=== PATIENT | female | born 1990 | race Caucasian/White ===

== ENCOUNTER 2022-04-17 09:51 | Emergency (ER) | payer SELFPAY ==
[~2022-04-17] VITALS: Ht 172.7 cm; Wt 61.2 kg
[2022-04-17 10:11] VITALS: BP_SYST 116
--- NOTE | 2022-04-17 10:30 | NUR ---
Patient to ER bed TRIAGE to gown for evaluation. Side rails up.
--- NOTE | 2022-04-17 10:45 | NUR ---
ER at bedside examining patient.
[2022-04-17] MEDS ORDERED: CIPR500T5 PO (11:22)
[2022-04-17] MEDS ORDERED: LOM2.5 PO (11:22)
[2022-04-17 11:30] VITALS: BP_SYST 116
--- NOTE | 2022-04-17 11:30 | NUR ---
Patient given written and verbal discharge instructions and verbalizes understanding. ER MD discussed with patient the results and treatment provided. Patient in stable condition. ID arm band removed. Rx of CIPRO given. Patient educated on pain management and to follow up with PMD. Pain Scale 0. Opportunity for questions provided and answered. Medication side effect fact sheet provided.
== END 2022-04-17 11:30 | disposition home or self-care (01) ==
LOC: SED 09:51
DX: K62.5 Hemorrhage of anus and rectum (principal); Z79.899 Other long term (current) drug therapy
CPT/HCPCS: 99283